=== PATIENT | male | born 1970 | race Caucasian/White ===

== ENCOUNTER 2020-10-02 16:15 | Day surgery (SDC) | payer BC ==
[2020-10-02] MEDS ORDERED: Lidocaine 2% Jelly 5 ML TUBE ONE (17:45)
[2020-10-02] MEDS ORDERED: Fentanyl 100 MCG/2 ML VIAL ONE (17:53)
[2020-10-02] MEDS ORDERED: Midazolam HCl 2 mg/2 ml Vial ONE (17:53)
[2020-10-02] MEDS ORDERED: Lidocaine 1% PF 5 ML VIAL ONE (17:55)
[2020-10-02] MEDS ORDERED: PROPOFOL 200 MG/20 ML VIAL ONE (17:55)
[2020-10-02] MEDS ORDERED: Ondansetron PF 4 MG/2 ML Vial ONE (17:55)
[2020-10-02] MEDS ORDERED: Dexamethasone 20 MG/5 ML VIAL ONE (17:55)
[2020-10-02] MEDS ORDERED: Succinylcholine 200 MG/10 ml SYRINGE FS ONE (17:55)
== END 2020-10-02 19:45 | disposition home or self-care (01) ==
LOC: SDC 16:15
PROVIDERS: ATTEND Internal Medicine Gastroenterology
PROC: 0DB38ZX Excision of Lower Esophagus, Via Natural or Artificial Opening Endoscopic, Diagnostic (ICD-10-PCS; principal; 2020-10-02)
PROC: 0DC28ZZ Extirpation of Matter from Middle Esophagus, Via Natural or Artificial Opening Endoscopic (ICD-10-PCS; principal; 2020-10-02)
PROC: 0DB18ZX Excision of Upper Esophagus, Via Natural or Artificial Opening Endoscopic, Diagnostic (ICD-10-PCS; principal; 2020-10-02)
DX: K22.70 Barrett's esophagus without dysplasia (principal); K20.0 Eosinophilic esophagitis; T18.128A Food in esophagus causing other injury, initial encounter; K22.2 Esophageal obstruction; G47.30 Sleep apnea, unspecified; Z88.1 Allergy status to other antibiotic agents
CPT/HCPCS: 88305; J1100; J2250; J2405; J2704; J3010